=== PATIENT | female | born 1965 | race Caucasian/White ===

== ENCOUNTER 2022-02-16 07:34 | Outpatient (REF) | payer OTHER, SELFPAY ==
--- NOTE | ~2022-02-16 | MM_ITS ---
EXAMINATION: MM SCREENING DIGITAL BREAST TOMOSYNTHESIS, BILATERAL CLINICAL INFORMATION: Screening. Asymptomatic. The lifetime risk of breast cancer based on the Tyrer-Cuzick Model is 7%. COMPARISON: Outside mammography: 10/25/2020, 06/23/2019 ([facility]). TECHNIQUE: Digital breast tomosynthesis is performed in both the craniocaudal and mediolateral oblique views along with computer-aided detection (CAD). Synthesized 2D images are generated from the tomosynthesis. FINDINGS: There are scattered areas of fibroglandular density (ACR BI-RADS breast composition Category b). There are no significant masses, abnormal calcifications, or other abnormalities. Parenchymal pattern is similar to prior outside studies. No developing density or architectural abnormality or significant change. MM/MM tomosynthesis screening BI IMPRESSION: No mammographic evidence of malignancy. ASSESSMENT: BI-RADS 1: Negative RECOMMENDATION: Routine annual mammography screening. This patient's information was entered into a reminder system with a target due date for their next mammogram.
== END 2022-02-16 07:35 | disposition home or self-care (01) ==
LOC: HO.MAMMO 07:34
PROVIDERS: PCP Physician Assistant; Visit Provider Physician Assistant
DX: Z12.31 Encounter for screening mammogram for malignant neoplasm of breast (principal)
CPT/HCPCS: 77063; 77067

== ENCOUNTER 2023-03-12 07:40 | Outpatient (REF) | payer OTHER, SELFPAY ==
--- NOTE | ~2023-03-12 | MM_ITS ---
EXAMINATION: MM SCREENING DIGITAL BREAST TOMOSYNTHESIS, BILATERAL CLINICAL INFORMATION: Screening. Asymptomatic. The lifetime risk of breast cancer based on the Tyrer-Cuzick Model is 6%. COMPARISON: Mammography: 02/16/2022; outside mammography 10/25/2020, 06/22/2019 ([facility]). TECHNIQUE: Digital breast tomosynthesis is performed in both the craniocaudal and mediolateral oblique views along with computer-aided detection (CAD). Synthesized 2D images are generated from the tomosynthesis. FINDINGS: The breasts are heterogeneously dense, which may obscure small masses (ACR BI-RADS breast composition Category c). Breast tissue composition borders on average fibroglandular. There is chronic mild bilateral retroareolar duct ectasia similar to prior studies. Neither breast shows abnormal calcifications. There is no architectural abnormality. The axilla and skin contours are unremarkable. Left breast shows no significant mass or developing density. Right CC view has asymmetric density anterior breast just medial to midline 2 cm from nipple, likely incompletely compressed glandular tissue and/or summation artifact. Patient will be recalled for additional imaging. MM/MM tomosynthesis screening BI IMPRESSION: Right: -Asymmetric density anterior central inner breast on CC view. Suspect incompletely compressed glandular tissue and/or summation artifact. Left: -No significant changes from prior exams. ASSESSMENT: BI-RADS 0: Incomplete - Need Additional Imaging Evaluation RECOMMENDATION: 1. Additional views right breast (spot CC, rolled CC x2). 2. Targeted ultrasound if warranted after review of the additional views. 3. Radiology department staff will contact the patient for additional imaging. This patient's information was entered into a reminder system with a target due date for their next mammogram.
== END 2023-03-12 07:41 | disposition home or self-care (01) ==
LOC: HO.MAMMO 07:40
PROVIDERS: PCP Physician Assistant; Visit Provider Physician Assistant
DX: Z12.31 Encounter for screening mammogram for malignant neoplasm of breast (principal)
CPT/HCPCS: 77063; 77067

== ENCOUNTER 2023-04-01 14:59 | Outpatient (REF) | payer OTHER, SELFPAY ==
--- NOTE | ~2023-04-01 | MM_ITS ---
EXAMINATION: MM DIAGNOSTIC DIGITAL BREAST TOMOSYNTHESIS, RIGHT US DIAGNOSTIC ULTRASOUND BREAST, RIGHT CLINICAL INFORMATION: Recall from screening for asymmetric density anterior central inner right breast on CC view, possibly summation artifact. COMPARISON: Mammography 03/12/2023, 02/16/2022; outside mammography 10/25/2020, 06/22/2019 ([facility]). TECHNIQUE: Digital breast tomosynthesis is performed. 2D images are generated from the tomosynthesis. The following views are obtained: Spot CC, rolled CC x2. Ultrasound right breast is targeted to the retroareolar and periareolar. Grayscale imaging and color Doppler are performed without and with harmonics. FINDINGS: The breasts are heterogeneously dense, which may obscure small masses (ACR BI-RADS breast composition Category c). The additional views show mild duct ectasia. No architectural abnormality. Ultrasound demonstrates a complicated cyst upper outer retroareolar region with multiple internal septations and overall size 0.8 x 0.5 cm. Color Doppler shows some internal color flow within the septation. There is no solid mass or architectural abnormality. There is mild retroareolar duct ectasia with normal anechoic lumen, thin-walled, and no intraluminal mass or color flow. No skin thickening or edema tracking in soft tissue planes. Results are discussed with the patient at time of visit. The complicated cyst retroareolar breast on ultrasound has some internal color flow. Differential considerations include grouped microcysts as well as small intracystic papilloma. Ultrasound-guided core biopsy is recommended. MM/MM tomosynthesis added views R IMPRESSION: -Complicated retroareolar cyst 0.8 cm with some internal color flow (grouped microcysts versus intracystic papilloma). ASSESSMENT: BI-RADS 4: Suspicious (subcategory 4A: Low suspicion for malignancy) RECOMMENDATION: Ultrasound-guided core biopsy right breast.
== END 2023-04-01 15:00 | disposition home or self-care (01) ==
LOC: HO.MAMMO 14:59
PROVIDERS: PCP Physician Assistant; Visit Provider Physician Assistant
DX: R92.2 Inconclusive mammogram (principal)
CPT/HCPCS: 76642; 77061; 77065

== ENCOUNTER 2023-04-09 09:59 | Outpatient (REF) | payer OTHER, SELFPAY ==
--- NOTE | ~2023-04-09 | MM_ITS ---
PROCEDURE: US GUIDED BREAST BIOPSY, RIGHT CLINICAL INFORMATION: Suspicious right breast cystic mass. COMPARISON: April 01, 2023 and studies dating back to June 22, 2019 PROCEDURAL DETAILS: The details of the procedure, as well as the risks, benefits, and alternatives to the procedure were explained to the patient in detail and all of her questions were answered, after which written informed consent was obtained. Site and side were confirmed. Prior to the procedure, sonography revealed a hypoechoic 7 x 4 mm lesion with some increased through sound transmission without distal sound shadowing. Internal septations and question small soft tissue component with vascularity is seen.. A time-out was performed, the lesion intended for biopsy was targeted, and the skin of the right breast was then prepped and draped in the usual sterile fashion. Using sonographic guidance, sterile technique, and 1% lidocaine without epinephrine for local anesthesia, multiple automated core biopsies were obtained through the targeted area with a 14G spring loaded Achieve core biopsy device. There was real-time confirmation of appropriate needle passage. Sampling was documented. At the completion of tissue sampling, a single butterfly metallic clip was deposited at the biopsy site. There was no evidence of immediate complication. SPECIMEN: An appropriate sample was obtained. DIGITAL POST-PROCEDURE MAMMOGRAPHY: Breast density: The tissue contains scattered areas of fibroglandular density. BI-RADS version 5, category B. There are no new mammographic findings demonstrated. The postprocedure 2-view direct digital mammogram reveals satisfactory positioning of the biopsy clip. The patient tolerated the procedure well and, after assuring adequate hemostasis, was discharged in good condition after reviewing postbiopsy breast care instructions. Final pathology results are pending. MM/MM tomosynthesis diagnostic RT IMPRESSION: 1. No immediate complication from ultrasound-guided percutaneous biopsy right breast. 2. Ultrasound was used to localize and guide marker clip placement. 3. The 2-view direct digital postprocedure mammogram reveals satisfactory positioning of the biopsy clip. 4. Final pathology results are pending. A separate report with final recommendations will be issued once these results are made available.
== END 2023-04-09 10:00 | disposition home or self-care (01) ==
LOC: HO.MAMMO 09:59
PROVIDERS: PCP Physician Assistant; Visit Provider Surgery
DX: N60.01 Solitary cyst of right breast (principal)
CPT/HCPCS: 19083; 77061; 77065; 88305; 99202

== ENCOUNTER → 2023-04-15 14:06 | Outpatient (BNVA) | payer OTHER, SELFPAY | PROVIDERS: PCP Physician Assistant; Visit Provider Surgery | DX: N60.09 Solitary cyst of unspecified breast (principal) | CPT/HCPCS: 99212 ==

== ENCOUNTER 2023-06-02 08:19 | Outpatient (AMB) | payer OTHER, SELFPAY ==
--- NOTE | 2023-06-02 08:30 | A.OFFVIS_ITS ---
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 No complaints. Last Pap/HPV was many years ago Last Mammogram was in 04/09 BI-RADS 4 a, biopsy was benign, the recommendation was to repeat in 6 months, next mammogram is scheduled Last Colonoscopy was many years ago [facility] Medical History Melanoma in situ Surgical History History of section Family History Father Alive and well Mother Alive and well Melanoma Social History Housing: Condominium Alcohol intake: current Patient Tobacco Use Status: Never used Tobacco e-Cigarette/Vaping Use: Never Used Second Hand Smoke Exposure: No Current occupational status: employed Cognitive needs: No Hearing needs: No Vision needs: No Female Reproductive History Menstrual Age of menopause: 48 Total pregnancies: 2 Number of Living Children: 2 Review of Systems Const All systems reviewed & are unremarkable except as noted in HPI and below Card Reports as per HPI Resp Reports as per HPI GI Reports as per HPI and Reports no additional complaints Reports as per HPI Physical Exam Vital Signs: Last Vital Signs BP 108/74 06/02/23 08:31 BMI result Body Mass Index 21.2 Const General: cooperative, healthy appearing and comfortable Chest Chest palpation & inspection: normal inspection of the chest and normal palpation of entire chest wall Breast/axilla inspection: normal inspection of the breasts and normal inspection of the axillae Breast/axilla palpation: normal palpation of the breasts, normal palpation of the axillae and no axillary lymphadenopathy Resp Effort & Inspection: normal respiratory effort Auscultation: clear to auscultation bilaterally Percussion: percussion normal Cardio Palpation: normal PMI Rate: regular rate Rhythm: regular rhythm Heart sounds: no murmurs and no rubs Peripheral pulses: Peripheral pulses 2+ throughout GI Inspection: Yes normal to inspection Palpation (GI): Soft to palpation, nontender, no guarding, not rigid and No hepatosplenomegaly present Percussion: Yes normal to percussion Auscultation: normal bowel sounds Rectal Exam - Female: deferred General: Yes bladder normal to palpation External Female Exam: No lesion Speculum Exam - Vagina: normal appearance of the vagina, normal palpation, normal vaginal discharge and not erythematous Speculum Exam - Cervix: normal appearance of the cervix and normal palpation Bimanual exam- vagina & uterus: normal bimanual exam, normal palpation, uterine size normal, bladder normal to palpation, consistency normal and normal palpation Bimanual Exam- Adnexa, other: normal adnexae, no masses and no tenderness Assessment & Plan Assessment & Plan (1) Well woman exam: Code(s): Z01.419 - Encounter for gynecological examination (general) (routine) without abnormal findings Plan: Co testing done. Counseled the patient about the recommended dietary allowance of 1200 mg of Calcium & 600 IU of vitamin D. Mammogram scheduled by the patient in September of 2023 , the patient was referred to GI for screening colonoscopy . The patient was instructed to perform monthly self-breast exams and schedule annual exam in a year; all questions answered and the patient verbalized understanding. Orders: Referrals Gastroenterology Referral Z12.11 - Encounter for screening for malignant neoplasm of colon Coding Level of Care Code New Pt Prev Care 40-64y(25953) Diagnoses Well woman exam Z01.419
[2023-06-02 08:31] VITALS: BP 108/74; BMI 21.2
== END 2023-06-02 09:05 | disposition home or self-care (01) ==
LOC: HO.HWS 08:19
PROVIDERS: PCP Physician Assistant; Visit Provider Obstetrics & Gynecology
DX: Z01.419 Encounter for gynecological examination (general) (routine) without abnormal findings (principal)
CPT/HCPCS: 99386

== ENCOUNTER 2023-06-02 08:19 | Outpatient (REF) | payer OTHER, SELFPAY ==
[2023-06-04 21:33] LABS: HPV mRNA E6/E7 Not Detected (Not Detected)
== END 2023-06-02 08:20 | disposition home or self-care (01) ==
LOC: HO.LNP 08:19
PROVIDERS: PCP Physician Assistant; Visit Provider Obstetrics & Gynecology
DX: Z01.419 Encounter for gynecological examination (general) (routine) without abnormal findings (principal)
CPT/HCPCS: 87624; 88142

== ENCOUNTER → 2023-11-10 13:00 | Outpatient (BNV) | payer OTHER, SELFPAY | PROVIDERS: PCP Internal Medicine; Visit Provider Radiology Diagnostic Radiology | DX: R92.8 Other abnormal and inconclusive findings on diagnostic imaging of breast (principal) | CPT/HCPCS: 77061; 77065 ==

== ENCOUNTER 2023-11-10 13:12 | Outpatient (REF) | payer OTHER, SELFPAY ==
--- NOTE | ~2023-11-10 | MM_ITS ---
EXAMINATION: MM DIAGNOSTIC DIGITAL BREAST TOMOSYNTHESIS, RIGHT CLINICAL INFORMATION: 6 month follow-up after benign right biopsy of cluster of cysts. COMPARISON: Mammography: 04/09/2023, 05/01/2023, 03/12/2023, 02/16/2022, 10/25/2020, and dating back to 2019 from [facility]. ULTRASOUND: 04/01/2023 with ultrasound-guided biopsy 04/09/2023. TECHNIQUE: Digital right breast tomosynthesis is performed in both the craniocaudal and mediolateral oblique views along with computer-aided detection (CAD). Synthesized 2D images are generated from the tomosynthesis. FINDINGS: The breasts are heterogeneously dense, which may obscure small masses (ACR BI-RADS breast composition Category c). A small oval circumscribed mass is present in the 3:00 axis, anterior one third, with internal butterfly biopsy clip, reflecting the benign biopsied cluster of cysts. This is unchanged to slightly smaller when compared with prior. Otherwise, there is been no significant interval change in the heterogeneously dense fibrocystic appearing parenchymal pattern. There is retroareolar duct ectasia, stable. No suspicious masses, suspicious grouped calcifications, or developing areas of architectural distortion. MM/MM tomosynthesis diagnostic RT IMPRESSION: There are no findings suspicious for malignancy right breast. There are fibrocystic changes. Benign biopsied cluster of cysts with butterfly clip, 3:00 right breast, slightly smaller, likely reflecting post biopsy changes. No further follow-up recommended. Recommend patient resume routine annual screening in February 2024. ASSESSMENT: BI-RADS BI-RADS 2 - Benign Findings RECOMMENDATION: 1 year F/U Results were provided to the patient at time of visit by the technologist. This patient's information was entered into a reminder system with a target due date for their next mammogram.
== END 2023-11-10 13:13 | disposition home or self-care (01) ==
LOC: HO.MAMMO 13:12
PROVIDERS: PCP Internal Medicine; Visit Provider Surgery
DX: N60.01 Solitary cyst of right breast (principal)
CPT/HCPCS: 77061; 77065

== ENCOUNTER 2023-11-29 09:40 | Outpatient (AMB) | payer OTHER, SELFPAY ==
[2023-11-29 09:46] VITALS: BMI 20.9
--- NOTE | 2023-11-29 09:46 | MHC.OFFVIS ---
Intake Vital Signs 11/29/23 09:46 Height 5 ft 2.5 in Weight 116 lb BMI 20.9 Blood Pressure Location Lt brachial Position Sitting Intake Visit Reasons: Breast exam 6m follow up Intake Note: Patient here for breast exam 6m f/u. Recent mammo 11-10-23. 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 She has not breast issues or complaints. She does do self-breast exams. Follow-up mammogram was within normal limits. [facility] Medical History Melanoma in situ Surgical History History of section Family History Father Alive and well Mother Alive and well Melanoma Social History Housing: Condominium Alcohol intake: current Patient Tobacco Use Status: Never used Tobacco e-Cigarette/Vaping Use: Never Used Second Hand Smoke Exposure: No Current occupational status: employed Cognitive needs: No Hearing needs: No Vision needs: No Physical Exam Vital Signs: BMI result Body Mass Index 20.9 Chest Other: Bilateral breast exam negative for any mass, discharge, adenopathy, or skin changes. No cervical periclavicular or axillary adenopathy bilaterally. Assessment & Plan Assessment & Plan (1) Cyst, breast solitary: Code(s): N60.09 - Solitary cyst of unspecified breast Plan: Patient will see me in 6 months time where she will be under annual screening mammography scheduled. She is encouraged to continue to do self-breast exams. Any issues or complaints there is interim, patient should call the office for follow-up in the meantime, will otherwise see her as scheduled. (2) Cervical cancer screening: Code(s): Z12.4 - Encounter for screening for malignant neoplasm of cervix Plan: See above Coding Level of Care Code Est Pt Level 4 (81916) Diagnoses Cyst, breast solitary N60.09 Cervical cancer screening Z12.4
== END 2023-11-29 09:52 | disposition home or self-care (01) ==
PROVIDERS: PCP Physician Assistant; Visit Provider Surgery
DX: N60.09 Solitary cyst of unspecified breast (principal); Z12.4 Encounter for screening for malignant neoplasm of cervix
CPT/HCPCS: 99214

== ENCOUNTER → 2023-11-29 09:40 | Outpatient (BNVA) | payer OTHER, SELFPAY | PROVIDERS: PCP Physician Assistant; Visit Provider Surgery | DX: Z12.4 Encounter for screening for malignant neoplasm of cervix (principal); N60.09 Solitary cyst of unspecified breast | CPT/HCPCS: 99212 ==

== ENCOUNTER 2023-12-14 08:05 | Outpatient (AMB) | payer OTHER, SELFPAY ==
[2023-12-14 08:12] VITALS: BP 110/68; BMI 20.7
--- NOTE | 2023-12-14 08:12 | MHC.PC.OV ---
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 Accompanied by: Self / Same As Patient Allergies No Known Allergies Allergy (Verified 12/14/23 08:31) Medication List - Last Reconciled 12/14/23 by Emiliano Price PA-C trazodone 100 mg PO BEDTIME venlafaxine ER 150 mg PO DAILY Tobacco use date assessed: 12/14/23 Dental Screening Dental Screen Date: 12/14/23 Did you have a dental visit in the last 12 months?: No Did you have a dental problem in the last 6 months where you did not have access to dental care?: No Was dental information given to patient?: Yes HPI Annual exam HPI Details Patient is a 58-year-old female here today for annual physical. Patient has a past medical history significant for generalized anxiety disorder, strict vegan diet. Concern--> does report getting fungal foot skin infection during the summer months. She reports antifungal topical treatments are ineffective. .. CORAL: REports her anxiety is well controlled with the meds. . Colonoscopy: Cologuard negative in 2020, needs repeat- currently trying to regain a better insurance will like to hold off on ordering Cologuard .. Mammogram: Mammogram done October 2023 BI-RADS 1. Does solitary breast cyst Vaccine: UTD With TDap, considering Shingrex PFSH Medical History (Updated 12/14/23 @ 13:50 by Emiliano Price PA-C) Family history of skin cancer Melanoma in situ Surgical History History of breast biopsy History of section Family History Father Alive and well Mother Alive and well Melanoma Social History Housing: Condominium Alcohol intake: former Patient Tobacco Use Status: Never used Tobacco e-Cigarette/Vaping Use: Never Used Second Hand Smoke Exposure: No service: No Current occupational status: unemployed Cognitive needs: No Hearing needs: No Vision needs: No Questionnaire PHQ-9 Over the last 2 weeks, how often have you been bothered by any of the following problems? 1. Little interest or pleasure in doing things: not at all 2. Feeling down, depressed, or hopeless: not at all 3. Trouble falling or staying asleep, or sleeping too much: not at all 4. Feeling tired or having little energy: not at all 5. Poor appetite or overeating: not at all 6. Feeling bad about yourself - or that you are a failure or have let yourself or your family down: not at all 7. Trouble concentrating on things, such as reading the newspaper or watching television: not at all 8. Moving or speaking so slowly that other people could have noticed. Or the opposite - being so fidgety or restless that you have been moving around a lot more than usual: not at all 9. Thoughts that you would be better off or of hurting yourself in some way: not at all Total score: 0 Depression Screening Interpretation: Negative Depression Screening Done: Yes 99515 - PHQ-9 Billing: Yes Source: Developed by Drs. Barry Ewing, Serena Thurston, Nikunj Orozco and colleagues, with an educational alverto from [employer]. Thrive Questionnaire Date Thrive assessed: 12/14/23 I am a: Patient What is your living situation today?: I have a steady place to live Within the past 12 months, did the food you bought not last and you didn't have the money to get more?: Never true Within the past 12 months, did you worry whether your food would run out before you got money to buy more?: Never true Do you have trouble paying for medicines?: No Do you have trouble getting transportation to medical appointments?: No Do you have trouble paying your heating and electricity bill?: No Do you have trouble taking care of your child, family member or friend?: No Do you have trouble with day-to-day activities such as bathing, preparing meals, shopping, managing finances, etc.?: No Are you currently unemployed and looking for a job?: No Are you interested in more education?: No Please select the resources that you would like help with: None Currently or been in a relationship where the following occur: no concerns reported THRIVE Score: 0 AUDIT C Alcohol Use Questionnaire (AUDIT-C) 1. How often do you have a drink containing alcohol?: Never Total Score: 0 CORAL-7 AMB Questionnaire CORAL-7 Date CORAL - 7 assessed: 12/14/23 Feeling nervous, anxious, or on edge: 0 = Not at all Not being able to stop or control worryin = Not at all Worrying too much about different things: 0 = Not at all Trouble relaxin = Not at all Being so restless that it is hard to sit still: 0 = Not at all Becoming easily annoyed or irritable: 0 = Not at all Feeling afraid as if something awful might happen: 0 = Not at all Total CORAL-7 score (0-4 normal; 5-9 mild; 10-14 moderate; 15-21 severe): 0 Source: Developed by Drs. Barry Ewing, Serena Thurston, Nikunj Orozco and colleagues, with an educational alverto from [employer]. CORAL-7 Assessment Billing CORAL-7 Assessment Tool: CORAL-7 Assessment 89754 Review of Systems Const Denies body aches, Denies chills, Denies excessive sweating, Denies fatigue, Denies fever(s) and Denies headache(s) Eyes Denies blurry vision ENT Denies dysphagia, Denies vertigo, Denies dizziness, Denies headache(s), Denies hearing loss and Denies tinnitus Card Denies chest pain, Denies chest pain with activity, Denies syncope, Denies irregular heart rhythm and Denies dyspnea Resp Denies chest congestion, Denies cough, Denies hemoptysis, Denies dyspnea and Denies wheezing GI Denies abdominal pain, Denies melena, Denies hematochezia, Denies coffee ground emesis, Denies dysphagia, Denies diarrhea, Denies nausea and Denies vomiting Denies urinary frequency, Denies dysuria, Denies urinary hesitancy and Denies urinary urgency Musc Denies arthralgias, Denies limited range of motion, Denies muscle cramps and Denies muscle weakness Skin/Breast Denies rash and Denies skin ulcer Neuro Denies Abnormal speech present, Denies confusion, Denies vertigo, Denies dizziness, Denies syncope, Denies headache(s), Denies memory loss and Denies seizure-like activity Psych Denies anxiety, Denies confusion, Denies depression, Denies memory loss, Denies panic attacks and Denies paranoia Endo Denies excessive sweating, Denies fatigue, Denies flushing, Denies polydipsia and Denies polyuria Aller/Immun Denies wheezing Physical exam (Primary Care) Vital Signs: Last Vital Signs BP 110/68 12/14/23 08:12 BMI result Body Mass Index 20.7 Tobacco/Smoking Status: Tobacco use Status Tobacco use date assessed 12/14/23 12/14/23 08:20 Patient Tobacco Use Status Never used Tobacco 12/14/23 08:20 e-Cigarette/Vaping Use Never Used 12/14/23 08:20 PHQ-9: PHQ-9 Score PHQ-9: Total score 0 12/14/23 08:21 Depression Screening Interpretation: Negative Thrive Assessment: Date of Thrive Assessment Date Thrive assessed 12/14/23 12/14/23 08:21 Currently or been in a relationship where the following occur: no concerns reported Const General: cooperative, comfortable, no acute distress, alert and awake; No confusion Orientation/consciousness: oriented to person, oriented to place, patient oriented x3 and No confusion HENMT Head: Yes normocephalic Ears: external ears normal and TM's normal bilaterally Face and sinus: No sinus tenderness Mouth: Normal oral and palatal mucosa present and tongue normal Teeth and gingiva: dentition normal and gingiva normal Throat: Yes posterior oropharynx normal, Yes tonsils normal and Yes uvula midline Eyes Conjunctivae: conjunctivae normal Sclerae: sclerae normal Pupils: Equal, round and reactive pupils present EOM: EOMs intact bilaterally Direct Ophthalmoscopy: No no photophobia Neck Neck: Yes no lymphadenopathy, No tender and Yes no JVD Thyroid: Thyroid normal Carotids: no bruits Chest Chest palpation & inspection: no tenderness Resp Effort & Inspection: normal respiratory effort, no audible wheezes, not labored and no stridor Auscultation: no crackles, no rales, no rhonchi and no wheezes Cardio Jugular venous distension: no JVD Rate: regular rate, not bradycardic and not tachycardic Rhythm: regular rhythm Bruits: no carotid bruits Peripheral pulses: Peripheral pulses 2+ throughout GI Inspection: Yes normal to inspection, No abdominal wall ecchymosis and No visible herniation Palpation (GI): Soft to palpation, nontender, no guarding, not rigid and No hepatosplenomegaly present Auscultation: normoactive bowel sounds General: Yes no CVA tenderness Back/Spine/Pelvis Back: no CVA tenderness and No back tenderness Cervical Spine: cervical ROM normal Thoracic/Lumbar Spine: thoracic and lumbar spine normal to inspection, straight leg raise negative bilaterally, No thoraco-lumbar ROM limited and No lumbar spinal tenderness Skin Lesions: no lesions Rashes: no rashes Wounds: no wounds Neuro General: oriented to person, oriented to place, patient oriented x3, CN's II-XI intact bilaterally and No confusion Cranial nerves: Yes Equal, round and reactive pupils present and Yes Normal accommodation reflex present Cognition (Neuro): normal cognition Speech: No Abnormal speech present Gait exam (Neuro): Normal gait present Motor exam (neuro): 5/5 motor strength present throughout Extrem Right upper extremity: full ROM; no cyanosis Left upper extremity: full ROM; no cyanosis Right lower extremity: no edema Left lower extremity: no edema Psych Appearance: grossly normal Mental Status: mental status grossly normal Affect: normal affect Attitude: cooperative Thought process: Normal thought process present Assessment and Plan Assessment & Plan (1) Annual physical exam: Onset Date: ~11/20/21 Comment: Last colonoscopy in 2018. Reports she can't repeat this again d/t having issues with procedure. Cologoleg (-) 11/[address] [facility] this isn't covered. Code(s): Z00.00 - Encounter for general adult medical examination without abnormal findings (2) CORAL (generalized anxiety disorder): Code(s): F41.1 - Generalized anxiety disorder Plan: Patient's anxiety has been well controlled with current dose of mental health medications. (3) Vegan diet: Code(s): Z78.9 - Other specified health status Plan: Patient does report following a strict vegan diet. Will recheck her folate and B12 levels. (4) Screening for diabetes mellitus (DM): Code(s): Z13.1 - Encounter for screening for diabetes mellitus (5) Tinea pedis: Code(s): B35.3 - Tinea pedis Qualifiers: Laterality: bilateral Qualified Code(s): B35.3 - Tinea pedis Plan: Does report getting fungal skin infection during the summer months. She does use topical antifungals though are not effective. She would like to try oral antifungal when symptoms present. Advised to get liver enzymes checked before starting medication. (6) Measles, mumps, rubella (MMR) vaccination status unknown: Code(s): Z78.9 - Other specified health status Orders: Orders Complete Blood Count no Diff Today Z78.9 - Other specified health status Mumps Virus IgG Antibody Today Z78.9 - Other specified health status Rubella IgG Antibody Today Z78.9 - Other specified health status Varicella IgG Antibody Today Z78.9 - Other specified health status Vitamin B12 and Folate Today E53.8 - Deficiency of other specified B group vitamins, Z78.9 - Other specified health status Comprehensive [place]. Panel Fast Today Z13.1 - Encounter for screening for diabetes mellitus Rubeola IgG (Measles) Today Z78.9 - Other specified health status Referrals Dermatology Referral Z80.8 - Family history of malignant neoplasm of other organs or systems Medications: New terbinafine HCl 250 mg PO DAILY 10 days 10 tabs 0RF B35.3 - Tinea pedis Coding Level of Care Code Est Pt Prev Care 40-64y(69240) Diagnoses Annual physical exam Z00.00 CORAL (generalized anxiety disorder) F41.1 Vegan diet Z78.9 Screening for diabetes mellitus (DM) Z13.1 Tinea pedis of both feet B35.3 Laterality: bilateral Measles, mumps, rubella (MMR) vaccination status unknown Z78.9 Additional Codes CORAL-7 Assessment Billing - CORAL-7 Assessment Tool: CORAL-7 Assessment 28190 ([id number])
== END 2023-12-14 08:49 | disposition home or self-care (01) ==
PROVIDERS: Visit Provider Physician Assistant
DX: Z00.00 Encounter for general adult medical examination without abnormal findings (principal); F41.1 Generalized anxiety disorder; B35.3 Tinea pedis
CPT/HCPCS: 99396

== ENCOUNTER 2024-10-20 08:15 | Outpatient (REF) | payer OTHER, SELFPAY ==
--- NOTE | ~2024-10-20 | MM_ITS ---
EXAMINATION: MM SCREENING DIGITAL BREAST TOMOSYNTHESIS, BILATERAL CLINICAL INFORMATION: Screening. Asymptomatic. COMPARISON: Mammography: Comparison is made with available priors TECHNIQUE: Digital breast mammography with tomosynthesis is performed in both the craniocaudal and mediolateral oblique views along with computer-aided detection (CAD). FINDINGS: The breasts are heterogeneously dense, which may obscure small masses (ACR BI-RADS breast composition Category c). Right marker clip. There are no significant masses, abnormal calcifications, or other abnormalities. MM/MM tomosynthesis screening BI IMPRESSION: No mammographic evidence of malignancy. ASSESSMENT: BI-RADS BI-RADS 2 - Benign Findings RECOMMENDATION: Routine annual mammography screening. 1 year F/U This examination should not preclude the clinical evaluation of a suspicious palpable abnormality. This patient's information was entered into a reminder system with a target due date for their next mammogram. Electronically signed by: Peg Guardado DO 10/29/2024 08:45 AM [facility]
== END 2024-10-20 08:16 | disposition home or self-care (01) ==
LOC: HO.MAMMO 08:15
PROVIDERS: PCP Internal Medicine; Visit Provider Internal Medicine
DX: Z12.31 Encounter for screening mammogram for malignant neoplasm of breast (principal)
CPT/HCPCS: 77063; 77067

== ENCOUNTER → 2024-10-20 08:15 | Outpatient (BNV) | payer OTHER, SELFPAY | PROVIDERS: PCP Internal Medicine; Visit Provider Internal Medicine | DX: Z12.31 Encounter for screening mammogram for malignant neoplasm of breast (principal) | CPT/HCPCS: 77063; 77067 ==

== ENCOUNTER → 2024-11-21 10:00 | Outpatient (BNVA) | payer OTHER, SELFPAY | PROVIDERS: PCP Internal Medicine; Visit Provider Physician Assistant | DX: Z00.00 Encounter for general adult medical examination without abnormal findings (principal); F41.9 Anxiety disorder, unspecified; F32.A Depression, unspecified | CPT/HCPCS: 96127; 99396 ==